=== PATIENT | female | born 1955 | race Caucasian/White ===

== ENCOUNTER 2022-10-17 08:03 | Outpatient (OUT) | payer OTHER, SELFPAY ==
[2022-10-17 08:33] LABS: Basophils Percent Auto 0.5 % (0.2-2.0); Eosinophils Absolute Auto 0.8 10^3/uL (0.0-0.7); Eosinophils Percent Auto 9.5 % (0.9-7.0); Hematocrit 39.9 % (36.0-48.0); Hemoglobin 12.9 g/dL (12.0-16.0); Immature Granulocytes Abs Auto 0.02 10^3/uL (0.00-0.03); Immature Granulocytes Pct Auto 0.3 % (0.0-0.5); Lymphocytes Absolute Auto 2.2 10^3/uL (1.2-3.8); Lymphocytes Percent Auto 27.3 % (20.5-60.0); Mean Corpuscular HGB Conc 32.3 g/dL (29.9-35.2); Mean Corpuscular Hemoglobin 27.5 pg (26.7-34.0); Mean Corpuscular Volume 85.1 fL (81.0-99.0); Mean Platelet Volume 10.2 fL (9.5-13.5); Monocytes Absolute Auto 0.4 10^3/uL (0.3-0.8); Monocytes Percent Auto 5.1 % (1.7-12.0); Neutrophils Absolute Auto 4.6 10^3/uL (1.4-6.5); Neutrophils Percent Auto 57.3 % (43.0-75.0); Platelet Count 245 10^3/uL (150-450); Red Blood Count 4.69 10^6/uL (4.20-5.40); Red Cell Distribution Width 13.9 % (11.0-15.0); White Blood Count 7.9 10^3/uL (4.0-11.0)
[2022-10-17 09:42] LABS: Alanine Aminotransferase 24 U/L (14-59); Albumin Level 3.8 g/dL (3.4-5.0); Alkaline Phosphatase 62 U/L (46-116); Anion Gap 13.4; Aspartate Amino Transferase 15 U/L (15-37); BUN Creatinine Ratio 14.4; Bilirubin Total 0.4 mg/dL (0.2-1.0); Calcium 9.6 mg/dL (8.5-10.1); Carbon Dioxide 27.3 mmol/L (21.0-32.0); Chloride 103 mmol/L (98-107); Chol HDL Ratio 5.4; Cholesterol 209 mg/dL (<=200); Estimated Average Glucose 157 mg/dL; Estimated GFR (African America 56 (>=60); Estimated GFR (Non-African Ame 46 (>=60); Free T3 2.61 pg/mL (2.18-3.98); Globulin 3.7 g/dL; Glucose 206 mg/dL (74-106); Glycohemoglobin A1C 7.1 % (4.5-6.2); HDL Cholesterol 39 mg/dL (40-60); Potassium 4.7 mmol/L (3.5-5.1); Sodium 139 mmol/L (136-145); Thyroid Stimulating Hormone 0.157 uIU/mL (0.358-3.740); Total Protein 7.5 g/dL (6.4-8.2); Triglycerides 251 mg/dL (<=150); VLDL CHOLESTEROL 50.2 mg/dL
== END 2022-10-17 08:04 | disposition home or self-care (01) ==
LOC: LAB 08:07
PROVIDERS: PCP Family Medicine; Visit Provider Family Medicine
DX: Z79.899 Other long term (current) drug therapy (principal); E11.9 Type 2 diabetes mellitus without complications; E78.5 Hyperlipidemia, unspecified; R53.83 Other fatigue; Z12.11 Encounter for screening for malignant neoplasm of colon
CPT/HCPCS: 36415; 80053; 80061; 83036; 84436; 84443; 84481; 85025

== ENCOUNTER 2023-02-27 14:11 | Outpatient (OUT) | payer OTHER, SELFPAY ==
--- NOTE | 2023-02-27 14:52 | XR_ITS ---
[address] [address] Patient Name: BONNIE DENT MRN: [id number] date: 1955 Sex: F Assigned Patient Location: [facility] Current Patient Location: Accession/Order Number: [id number] Exam Date: 02/27/2023 14:45 Report Date: 02/28/2023 09:26 At the request of: FERMIN LANGE Procedure: XR lumbar spine 2-3V EXAM: XR lumbar spine 2-3V HISTORY: Lumbar Radiculopathy M54.16 COMPARISON: None. TECHNIQUE: 3 views Findings/impression: Satisfactory alignment. Maintained vertebral body heights. Multilevel endplate degenerative changes, disc disease, facet arthropathy and anterior spurring of L2 L4 to S1. No acute fracture or significant subluxation. Unremarkable soft tissues. Electronically authenticated by: FANTA ORTIZ Date: 02/28/2023 09:26
== END 2023-02-27 14:12 | disposition home or self-care (01) ==
LOC: RAD 14:12
PROVIDERS: PCP Family Medicine; Visit Provider Family Medicine
DX: M54.16 Radiculopathy, lumbar region (principal); M51.36 Other intervertebral disc degeneration, lumbar region
CPT/HCPCS: 72100

== ENCOUNTER 2023-12-20 09:16 | Outpatient (OUT) | payer OTHER, SELFPAY ==
--- OUTSIDE RECORDS SUMMARY | 2023-12-20 09:28 | XMS_ITS | CCD ---
Author Organization [facility] Care Team Providers Care Under Baster Name Role Phone FERMIN LANGE Unavailable Unavailable HOY, FERMIN M Unavailable Unavailable HOY, DR CHRISTENSEN Admitting Unavailable HOY, DR CHRISTENSEN Attending Unavailable HOY, DR CHRISTENSEN Primary Care Unavailable HOY, DR CHRISTENSEN Consulting Unavailable HOY, DR CHRISTENSEN Admitting Unavailable HOY, DR CHRISTENSEN Attending Unavailable HOY, DR CHRISTENSEN Primary Care Unavailable HOY, DR CHRISTENSEN Admitting Unavailable HOY, DR CHRISTENSEN Attending Unavailable HOY, DR CHRISTENSEN Primary Care Unavailable HOY, DR CHRISTENSEN Consulting Unavailable HOY, DR CHRISTENSEN Admitting Unavailable HOY, DR CHRISTENSEN Attending Unavailable HOY, DR CHRISTENSEN Primary Care Unavailable HOY, DR CHRISTENSEN Consulting Unavailable HOY, DR CHRISTENSEN Admitting Unavailable HOY, DR CHRISTENSEN Attending Unavailable HOY, DR CHRISTENSEN Primary Care Unavailable HOY, DR CHRISTENSEN Consulting Unavailable Zieber, DR Lerner Consulting Unavailable Problems Active Problems Problem Classification Problem Date Documented Da te Episodic/Chronic Abdominal pain (4 sources) Unspecified abdominal pain; Translations: [UNSPECIFIED ABDOMINAL PAIN] Onset: 10-18-2021 Episodic Other aftercare (4 sources) 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; Translations: [OTH USP CURRENT DRUG THERAPY] Onset: 08-17-2021 Episodic Urinary tract infections (4 sources) Acute cystitis with hematuria; Translations: [ACUTE CYSTITIS WITH HEMATURIA] Onset: 10-12-2021 Episodic Past or Other Problems Problem Classification Problem Date Documented Da te Episodic/Chronic Deficiency and other anemia (2 sources) Anemia, unspecified; Translations: [Anemia, unspecified] Onset: 03-21-2017 Episodic Diabetes mellitus without complication (2 sources) Other abnormal glucose; Translations: [Other abnormal glucose] Onset: 03-21-2017 Episodic Medical examination/evaluation (2 sources) Encounter for general adult medical examination without abnormal findings; Translations: [Encounter for general adult medical examination without abnormal findings] Onset: 03-21-2017 Episodic Unclassified (2 sources) Encounter for screening for malignant neoplasm of rectum; Translations: [Encounter for screening for malignant neoplasm of rectum] Onset: 03-21-2017 Episodic Results Test Name Value Interpretation Reference Range Facility CT ABD/PELVIS WO CONon 10-18 CT ABD/PELVIS WO CON EXAMINATION: CT ABD/PELVIS WO CON HISTORY: Abdominal pain , left flank pain COMPARISON: No relevant comparison available. TECHNIQUE: Axial, Coronal, and Sagittal images were created without IV contrast. Dose reduction techniques were achieved by using automated exposure control and/or adjustment of mA and/or kV according to patient size and/or use of iterative reconstruction technique. FINDINGS: LUNG BASES: No suspicious pulmonary or pleural disease. LIVER: No enlargement, atrophy, suspicious density, or significant focal lesion. BILIARY: Cholecystectomy. PANCREAS: No lesion, fluid collection, or abnormal duct dilatation. SPLEEN: No enlargement or focal lesion. ADRENALS: No mass or enlargement. KIDNEYS: No mass, obstruction, or calcification. BOWEL/MESENTERY: No visible mass, obstruction, or bowel wall thickening. AORTA/VASCULAR: No aneurysm or dissection. RETROPERITONEUM: No mass or adenopathy. LYMPH NODES: No adenopathy. URINARY BLADDER: No visible focal wall thickening, lesion, or calculus. PELVIC ORGANS: History. ABDOMINAL WALL: No mass or hernia. BONES: Degenerative disc disease of lower lumbar spine. No bony lesion or fracture. OTHER: Negative. IMPRESSION: 1. No urinary tract calculi or obstructive uropathy. 2. Unremarkable bowel. 3. No specific findings to account for patient's symptoms. Electronically authenticated by: MARTÍN HENNING Date: 2021-10-18 16:51 Normal [facility] XR KUB 1 VIEWon 10-13-2021 XR KUB 1 VIEW EXAMINATION: XR KUB 1 VIEW HISTORY: Acute cystitis ; left flank and pelvic pain for one day COMPARISON: No relevant comparison available. FINDINGS: KIDNEY/URETER - RIGHT: No visible renal or ureteral calcifications. KIDNEY/URETER - LEFT: No visible renal or ureteral calcifications. PELVIS: No visible ureteral calcifications. Any visible calcifications favor phleboliths. BOWEL: No abnormal dilation or deviation. BONES: No acute abnormality. OTHER: Right upper quadrant surgical clips suggesting cholecystectomy. IMPRESSION: 1. No urinary tract calculi. 2. Normal bowel gas pattern. 3. No suspicious findings. Electronically authenticated by: MARTÍN HENNING Date: 2021-10-13 21:03 Normal [facility] PROF CHEM 8 (BAS METB)on Anion gap [Moles/Vol] 16.3 mmol/L Normal [facility] Comment on above: Performed By: #### B MP #### [facility] [address] [address] [address] Bianca Hernandez Calcium [Mass/Vol] 9.2 mg/dL Normal 8.5-10.1 [facility] Comment on above: Performed By: #### B MP #### [facility] [address] [address] [address] Bianca Hernandez Chloride [Moles/Vol] 102 mmol/L Normal 98-107 [facility] Comment on above: Performed By: #### B MP #### [facility] [address] [address] [address] Bianca Hernandez CO2 [Moles/Vol] 24.7 mmol/L Normal 21.0-32.0 [facility] Comment on above: Performed By: #### B MP #### [facility] [address] [address] [address] Bianca Hernandez Creatinine [Mass/Vol] 1.66 mg/dL Critically high 0.55-1.02 [facility] Comment on above: Performed By: #### B MP #### [facility] [address] [address] [address] Bianca Hernandez EGFR-AF KUWAITI 38 mL/min/1.73m2 Critically low >=60 [facility] Comment on above: Performed By: #### B MP #### [facility] [address] [address] [address] Bianca Hernandez EGFR-NON AF KUWAITI 31 mL/min/1.73m2 Critically low >=60 [facility] Comment on above: Performed By: #### B MP #### [facility] [address] [address] [address] Bianca Hernandez Glucose [Mass/Vol] 160 mg/dL Critically high 74-106 [facility] Comment on above: Performed By: #### B MP #### [facility] [address] [place] [address] Dr. Bianca Hernandez Potassium [Moles/Vol] 5.0 mmol/L Normal 3.5-5.1 [facility] Comment on above: Performed By: #### B MP #### [facility] [address] [place] [address] Dr. Bianca Hernandez Sodium [Moles/Vol] 138 mmol/L Normal 136-145 [facility] Comment on above: Performed By: #### B MP #### [facility] [address] [place] [address] Dr. Bianca Hernandez Urea nitrogen [Mass/Vol] 30.0 mg/dL Critically high 7.0-18.0 [facility] Comment on above: Performed By: #### B MP #### [facility] [address] [place] [address] Dr. Bianca Hernandez Urea nitrogen/Creatinine [Mass ratio] 18.1 mg/mg Normal [facility] Comment on above: Performed By: #### B MP #### [facility] [address] [place] [address] Dr. Bianca Hernandez CBC AUTO DIFFon 08-12-2021 BASO # 0.1 103/ul Normal 0.0-0.1 [facility] Comment on above: Performed By: #### C BC #### [facility] [address] [place] [address] Dr. Bianca Hernandez Basophils/100 WBC (Bld) 0.8 % Normal 0.2-2.0 [facility] Comment on above: Performed By: #### C BC #### [facility] [address] [place] [address] Dr. Bianca Hernandez EO # 1.8 103/ul Critically high 0.0-0.7 [facility] Comment on above: Performed By: #### C BC #### [facility] [address] [place] [address] Dr. Bianca Hernandez Eosinophils/100 WBC (Bld) 18.3 % Critically high 0.9-7.0 [facility] Comment on above: Performed By: #### C BC #### [facility] [address] [place] [address] Dr. Bianca Hernandez Erythrocyte distribution width (RBC) [Ratio] 13.9 % Normal 11.0-15.0 [facility] Comment on above: Performed By: #### C BC #### [facility] [address] [place] [address] Dr. Bianca Hernandez Hematocrit (Bld) [Volume fraction] 38.5 % Normal 36.0-48.0 [facility] Comment on above: Performed By: #### C BC #### [facility] [address] [place] [address] Dr. Bianca Hernandez Hemoglobin (Bld) [Mass/Vol] 12.2 g/dL Normal 12.0-16.0 [facility] Comment on above: Performed By: #### C BC #### [facility] [address] [place] [address] Dr. Bianca Hernandez IG # 0.03 10e3/ul Normal 0.00-0.03 [facility] Comment on above: Performed By: #### C BC #### [facility] [address] [place] [address] Dr. Bianca Hernandez IG % 0.3 % Normal 0.0-0.5 [facility] Comment on above: Performed By: #### C BC #### [facility] [address] [place] [address] Dr. Bianca Hernandez LYMPH # 2.1 103/ul Normal 1.2-3.8 [facility] Comment on above: Performed By: #### C BC #### [facility] [address] [place] [address] Dr. Bianca Hernandez Lymphocytes/100 WBC (Bld) 21.7 % Normal 20.5-60.0 [facility] Comment on above: Performed By: #### C BC #### [facility] [address] [place] [address] Dr. Bianca Hernandez MANUAL DIFF REQ NO Normal [facility] Comment on above: Performed By: #### C BC #### [facility] [address] [address] [address] Bianca Hernandez MCH (RBC) [Entitic mass] 27.4 pg Normal 26.7-34.0 [facility] Comment on above: Performed By: #### C BC #### [facility] [address] [place] [address] Dr. Bianca Hernandez MCHC (RBC) [Mass/Vol] 31.7 g/dL Normal 29.9-35.2 [facility] Comment on above: Performed By: #### C BC #### [facility] [address] [place] [address] Dr. Bianca Hernandez MCV (RBC) [Entitic vol] 86.5 fL Normal 81.0-99.0 [facility] Comment on above: Performed By: #### C BC #### [facility] [address] [place] [address] Dr. Bianca Hernandez MONO # 0.5 103/ul Normal 0.3-0.8 [facility] Comment on above: Performed By: #### C BC #### [facility] [address] [place] [address] Dr. Bianca Hernandez Monocytes/100 WBC (Bld) 4.8 % Normal 1.7-12.0 [facility] Comment on above: Performed By: #### C BC #### [facility] [address] [place] [address] Dr. Bianca Hernandez NEUT # 5.2 103/ul Normal 1.4-6.5 [facility] Comment on above: Performed By: #### C BC #### [facility] [address] [place] [address] Dr. Bianca Hernandez Neutrophils/100 WBC (Bld) 54.1 % Normal 43.0-75.0 [facility] Comment on above: Performed By: #### C BC #### [facility] [address] [place] [address] Dr. Bianca Hernandez Platelet mean volume (Bld) [Entitic vol] 10.1 fL Normal 9.5-13.5 [facility] Comment on above: Performed By: #### C BC #### [facility] [address] [address] [address] Bianca Hernandez PLT 290 103/ul Normal 150-450 [facility] Comment on above: Performed By: #### C BC #### [facility] [address] [address] [address] Bianca Hernandez RBC 4.45 106/ul Normal 4.20-5.40 [facility] Comment on above: Performed By: #### C BC #### [facility] [address] [address] [address] Bianca Hernandez WBC 9.7 103/ul Normal 4.0-11.0 [facility] Comment on above: Performed By: #### C BC #### [facility] [address] [place] [address] Dr. Bianca Hrenandez FREE T3on 08-12-2021 FREE T3 3.43 pg/mlL Normal 2.18-3.98 [facility] Comment on above: Performed By: #### T 4, TSH, CMP, FT3, LIPID #### [facility] [address] [place] [address] Dr. Bianca Hernandez GLYCOHEMOGLOBIN A1Con 2021 ADA RECOMMENDATION SEE BELOW Normal [facility] Comment on above: Result Comment: ADA RECOMMENDED LIMIT 4.0 - 6.0 ADA THERAPEUTIC TARGET < 7.0 ACTION SUGGESTED > 7.0 Performed By: #### A 1C #### [facility] [address] [place] [address] Dr. Bianca Hernandez Glucose [Mass/Vol] 134 mg/dL Normal [facility] Comment on above: Performed By: #### A 1C #### [facility] [address] [place] [address] Dr. Bianca Hernandez HbA1c (Bld) [Mass fraction] 6.3 % Critically high 4.5-6.2 [facility] Comment on above: Performed By: #### A 1C #### [facility] [address] [place] [address] Dr. Bianca Hernandez LIPID PROFILEon 08-12-2021 CHOL-HDL RATIO NORM SEE BELOW Normal [facility] Comment on above: Result Comment: 3.3 - 4.4 LOW RISK 4.4 - 7.1 AVERAGE RISK 7.1 - 11.0 MODERATE RISK >11.0 HIGH RISK Performed By: #### T 4, TSH, CMP, FT3, LIPID #### [facility] [address] [address] [address] iBanca Hernandez Cholesterol [Mass/Vol] 236 mg/dL Critically high <=200 [facility] Comment on above: Performed By: #### T 4, TSH, CMP, FT3, LIPID #### [facility] [address] [address] [address] Bianca Hernandez Cholesterol in HDL [Mass/Vol] 43 mg/dL Normal 40-60 [facility] Comment on above: Performed By: #### T 4, TSH, CMP, FT3, LIPID #### [facility] [address] [address] [address] Bianca Hernandez Cholesterol in LDL [Mass/Vol] 136.4 mg/dL Normal [facility] Comment on above: Performed By: #### T 4, TSH, CMP, FT3, LIPID #### [facility] [address] [address] [address] Bianca Hernandez Cholesterol.total/Cho lesterol in HDL [Mass ratio] 5.5 {ratio} Normal [facility] Comment on above: Performed By: #### T 4, TSH, CMP, FT3, LIPID #### [facility] [address] [address] [address] Bianca Hernandez HDL NORMAL > or = 60 mg/dl - LO W CARDIOVASCULAR RISK <40 mg/dl - HIGH CARDIOVASCULAR RISK Normal [facility] Comment on above: Performed By: #### T 4, TSH, CMP, FT3, LIPID #### [facility] [address] [place] [address] Dr. Bianca Hernandez LDL CALC NORMAL SEE BELOW Normal [facility] Comment on above: Result Comment: <100 mg/dl OPTIMAL 100 - 129 mg/dl NEAR OR ABOVE OPTIMAL 130 - 159 mg/dl BORDERLINE HIGH 160 - 189 mg/dl HIGH >190 mg/dl VERY HIGH Performed By: #### T 4, TSH, CMP, FT3, LIPID #### [facility] [address] [place] [address] Dr. Bianca Hernandez Triglyceride [Mass/Vol] 283 mg/dL Critically high <=150 [facility] Comment on above: Performed By: #### T 4, TSH, CMP, FT3, LIPID #### [facility] [address] [place] [address] Dr. Bianca Hernandez VLDL CALC 56.6 mg/dL Normal [facility] Comment on above: Performed By: #### T 4, TSH, CMP, FT3, LIPID #### [facility] [address] [place] [address] Dr. Bianca Hernandez PROF 14(COMP METB)on 022 Albumin [Mass/Vol] 3.7 g/dL Normal 3.4-5.0 [facility] Comment on above: Performed By: #### T 4, TSH, CMP, FT3, LIPID #### [facility] [address] [place] [address] Dr. Bianca Hernandez Albumin/Globulin [Mass ratio] 1.0 {ratio} Normal [facility] Comment on above: Performed By: #### T 4, TSH, CMP, FT3, LIPID #### [facility] [address] [place] [address] Dr. Bianca Hernandez ALP [Catalytic activity/Vol] 59 U/L Normal 46-116 [facility] Comment on above: Performed By: #### T 4, TSH, CMP, FT3, LIPID #### [facility] [address] [place] [address] Dr. Bianca Hernandez ALT [Catalytic activity/Vol] 20 U/L Normal 14-59 [facility] Comment on above: Performed By: #### T 4, TSH, CMP, FT3, LIPID #### [facility] [address] [place] [address] Dr. Bianca Hernandez Anion gap [Moles/Vol] 14.8 mmol/L Normal [facility] Comment on above: Performed By: #### T 4, TSH, CMP, FT3, LIPID #### [facility] [address] [place] [address] Dr. Bianca Hernandez AST [Catalytic activity/Vol] 13 U/L Critically low 15-37 [facility] Comment on above: Performed By: #### T 4, TSH, CMP, FT3, LIPID #### [facility] [address] [place] [address] Dr. Bianca Hernandez Bilirubin [Mass/Vol] 0.5 mg/dL Normal 0.2-1.0 [facility] Comment on above: Performed By: #### T 4, TSH, CMP, FT3, LIPID #### [facility] [address] [place] [address] Dr. Bianca Hernandez Calcium [Mass/Vol] 9.7 mg/dL Normal 8.5-10.1 [facility] Comment on above: Performed By: #### T 4, TSH, CMP, FT3, LIPID #### [facility] [address] [place] [address] Dr. Bianca Hernandez Chloride [Moles/Vol] 102 mmol/L Normal 98-107 [facility] Comment on above: Performed By: #### T 4, TSH, CMP, FT3, LIPID #### [facility] [address] [place] [address] Dr. Bianca Hernandez CO2 [Moles/Vol] 25.9 mmol/L Normal 21.0-32.[address] [facility] Comment on above: Performed By: #### T 4, TSH, CMP, FT3, LIPID #### [facility] [address] [place] [address] Dr. Bianca Hernandez Creatinine [Mass/Vol] 1.88 mg/dL Critically high 0.55-1.02 [facility] Comment on above: Performed By: #### T 4, TSH, CMP, FT3, LIPID #### [facility] [address] [place] [address] Dr. Bianca Hernandez EGFR-AF KUWAITI 33 mL/min/1.73m2 Critically low >=60 [facility] Comment on above: Performed By: #### T 4, TSH, CMP, FT3, LIPID #### [facility] [address] [place] [address] Dr. Bianca Hernandez EGFR-NON AF KUWAITI 27 mL/min/1.73m2 Critically low >=60 [facility] Comment on above: Performed By: #### T 4, TSH, CMP, FT3, LIPID #### [facility] [address] [place] [address] Dr. Bianca Hernandez Globulin (S) [Mass/Vol] 3.7 g/dL Normal [facility] Comment on above: Performed By: #### T 4, TSH, CMP, FT3, LIPID #### [facility] [address] [place] [address] Dr. Bianca Hernandez Glucose [Mass/Vol] 154 mg/dL Critically high 74-106 [facility] Comment on above: Performed By: #### T 4, TSH, CMP, FT3, LIPID #### [facility] [address] [place] [address] Dr. Bianca Hernandez Potassium [Moles/Vol] 5.7 mmol/L Critically high 3.5-5.1 [facility] Comment on above: Performed By: #### T 4, TSH, CMP, FT3, LIPID #### [facility] [address] [place] [address] Dr. Bianca Hernandez Protein [Mass/Vol] 7.4 g/dL Normal 6.4-8.2 [facility] Comment on above: Performed By: #### T 4, TSH, CMP, FT3, LIPID #### [facility] [address] [place] [address] Dr. Bianca Hernandez Sodium [Moles/Vol] 137 mmol/L Normal 136-145 [facility] Comment on above: Performed By: #### T 4, TSH, CMP, FT3, LIPID #### [facility] [address] [place] [address] Dr. Bianca Hernandez Urea nitrogen [Mass/Vol] 24.0 mg/dL Critically high 7.0-18.0 [facility] Comment on above: Performed By: #### T 4, TSH, CMP, FT3, LIPID #### [facility] [address] [address] [address] Bianca Hernandez Urea nitrogen/Creatinine [Mass ratio] 12.8 mg/mg Normal [facility] Comment on above: Performed By: #### T 4, TSH, CMP, FT3, LIPID #### [facility] [address] [address] [address] Bianca Hernandez T4on 08-12-2021 T4 [Mass/Vol] 14.70 ug/dL Critically high 4.80-13.90 [facility] Comment on above: Performed By: #### T 4, TSH, CMP, FT3, LIPID #### [facility] [address] [address] [address] Bianca Hernandez TSHon 08-12-2021 TSH 0.073 uIU/mL Critically low 0.358-3.740 [facility] Comment on above: Performed By: #### T 4, TSH, CMP, FT3, LIPID #### [facility] [address] [address] [address] Bianca Hernandez TSH RANGE SEE BELOW Normal [facility] Comment on above: Result Comment: <0.3 4 UIU/ml HYPERTHYROID 0.34-5.60 UIU/ml EUTHYROID >5.60 UIU/ml HYPOTHYROID Performed By: #### T 4, TSH, CMP, FT3, LIPID #### [facility] [address] [address] [address] Bianca Hernandez VITAMIN D 25 OHon 08-12-2021 VIT D 25-OH 62.1 ng/mL Normal [facility] Comment on above: Performed By: #### V ITAD ####[facility] [id number] [address] Bianca Hernandez VIT D RANGES SEE BELOW Normal [facility] Comment on above: Result Comment: <20 ng/mL Vit D deficient 20 - <30 ng/mL Vit D insufficient 30 - 100 ng/mL Vit D sufficient >100 ng/mL Potential Toxicity Performed By: #### V ITAD ####[facility] [id number] [address]Dr. Bianca Hernandez CBC with Diffon 03-21-2017 Abs. Basophil 0.00 k/uL Normal 0.0-0.2 [facility] Comment on above: Result Comment: Perf ormed at [address] [place] [address] Performed By: #### C DP, CP, LIPR, T4, TSH, FE, GLYHGB ####[address] , [place] [address] #### INSU ####[address] [phone] [place] [address] #### TU ####[address] [address] Abs.Neutrophil (Seg) 6.60 k/uL Normal 1.8-7.7 [facility] Comment on above: Performed By: #### C DP, CP, LIPR, T4, TSH, FE, GLYHGB ####[address] [place] [address] #### INSU ####[address] [phone] [place] [address] #### TU ####[address] [address] Basophils/100 WBC Auto (Bld) 1 % Normal 0-2 [facility] Comment on above: Performed By: #### C DP, CP, LIPR, T4, TSH, FE, GLYHGB ####[address] [place] [id number] #### INSU ####[address] [phone] [place] [address] #### TU ####[address] [address] Eosinophils 0.60 10*3/uL High 0.0-0.4 [facility] Comment on above: Performed By: #### C DP, CP, LIPR, T4, TSH, FE, GLYHGB ####[address] [place] [address] #### INSU ####[address] [phone] [place] [address] #### TU ####[address] [address] Eosinophils/100 leukocytes 6 % Normal 0-8 [facility] Comment on above: Performed By: #### C DP, CP, LIPR, T4, TSH, FE, GLYHGB ####[address] [place] [address] #### INSU ####[address] [phone] [place] [address] #### TU ####[address] [address] Erythrocyte distribution width Auto Ratio (RBC) 14.5 % Normal 12.1-15.2 [facility] Comment on above: Performed By: #### C DP, CP, LIPR, T4, TSH, FE, GLYHGB ####[address] [place] [address] #### INSU ####[address] [phone] [place] [address] #### TU ####[address] [address] Erythrocytes (RBC) 5.17 10*6/uL Normal 4.0-5.2 [facility] Comment on above: Performed By: #### C DP, CP, LIPR, T4, TSH, FE, GLYHGB ####[address] [place] [address] #### INSU ####[address] [phone] [place] [address] #### TU ####[address] [address] Hematocrit (HCT) 41.6 % Normal 36-[address] [facility] Comment on above: Performed By: #### C DP, CP, LIPR, T4, TSH, FE, GLYHGB ####[address] [place] [address] #### INSU ####[address] [phone] [place] [address] #### TU ####[address] [address] Hemoglobin mass conc (Bld) 13.3 g/dL Normal 12.0-16.0 [facility] Comment on above: Performed By: #### C DP, CP, LIPR, T4, TSH, FE, GLYHGB ####[address] [place] [address] #### INSU ####[address] [phone] [place] [address] #### TU ####[address] [address] Lymphocytes 2.20 10*3/uL Normal 1.0-4.8 [facility] Comment on above: Performed By: #### C DP, CP, LIPR, T4, TSH, FE, GLYHGB ####[address] [place] [address] #### INSU ####[address] [phone] [place] [address] #### TU ####[address] [address] Lymphocytes/100 leukocytes 23 % Low 24-44 [facility] Comment on above: Performed By: #### C DP, CP, LIPR, T4, TSH, FE, GLYHGB ####[address] [place] [address] #### INSU ####[address] [phone] [place] [address] #### TU ####[address] [address] MCH 25.7 pg Low 26-34 [facility] Comment on above: Performed By: #### C DP, CP, LIPR, T4, TSH, FE, GLYHGB ####[address] [place] [address] #### INSU ####[address] [phone] [place] [address] #### TU ####[address] [address] MCHC mass conc (RBC) 32.0 g/dL Normal 31-37 [facility] Comment on above: Performed By: #### C DP, CP, LIPR, T4, TSH, FE, GLYHGB ####[address] [place] [address] #### INSU ####[address] [phone] [place] [address] #### TU ####[address] [address] MCV 80.5 fL Normal 80-100 [facility] Comment on above: Performed By: #### C DP, CP, LIPR, T4, TSH, FE, GLYHGB ####[address] [place] [address] #### INSU ####[address] [phone] [place] [address] #### TU ####[address] [address] Monocytes 0.30 10*3/uL Normal 0.0-1.0 [facility] Comment on above: Performed By: #### C DP, CP, LIPR, T4, TSH, FE, GLYHGB ####[address] [place] [address] #### INSU ####[address] [phone] [place] [address] #### TU ####[address] [address] Monocytes/100 leukocytes 3 % Normal 0-12 [facility] Comment on above: Performed By: #### C DP, CP, LIPR, T4, TSH, FE, GLYHGB ####[address] [place] [address] #### INSU ####[address] [phone] [place] [address] #### TU ####[address] [address] Neutrophil (Seg) 67 % High 36-[address] [facility] Comment on above: Performed By: #### C DP, CP, LIPR, T4, TSH, FE, GLYHGB ####[address] [place] [address] #### INSU ####[address] [phone] [place] [address] #### TU ####[address] [address] Platelet mean volume (PMV) 9.4 fL Normal 6.0-12.0 [facility] Comment on above: Performed By: #### C DP, CP, LIPR, T4, TSH, FE, GLYHGB ####[address] [place] [address] #### INSU ####[address] [phone] [place] [address] #### TU ####[address] [address] Platelets 258 10*3/uL Normal 140-450 [facility] Comment on above: Performed By: #### C DP, CP, LIPR, T4, TSH, FE, GLYHGB ####[address] [place] [address] #### INSU ####[address] [phone] [place] [address] #### TU ####[address] [address] WBC (Leukocytes) 9.8 10*3/uL Normal 3.5-11.0 [facility] Comment on above: Performed By: #### C DP, CP, LIPR, T4, TSH, FE, GLYHGB ####[address] [place] [address] #### INSU ####[address] [phone] [place] [address] #### TU ####[address] [address] Auto Diff Performed NOT REPORTED Normal [facility] Comment on above: Performed By: #### C DP, CP, LIPR, T4, TSH, FE, GLYHGB ####[address] [place] [address] #### INSU ####[address] [phone] [place] [address] #### TU ####[address] [address] Erythrocyte morphology NOT REPORTED Normal [facility] Comment on above: Performed By: #### C DP, CP, LIPR, T4, TSH, FE, GLYHGB ####[address] [place] [address] #### INSU ####[address] [phone] [place] [address] #### TU ####[address] [address] Granulocytes/100 WBC (Bld) NOT REPORTED Normal 0.00-0.30 [facility] Comment on above: Performed By: #### C DP, CP, LIPR, T4, TSH, FE, GLYHGB ####[address] [place] [address] #### INSU ####[address] [phone] [place] [address] #### TU ####[address] [address] Immature granulocytes #/vol (Bld) NOT REPORTED Normal 0 [facility] Comment on above: Performed By: #### C DP, CP, LIPR, T4, TSH, FE, GLYHGB ####[address] [place] [address] #### INSU ####[address] [phone] [place] [address] #### TU ####[address] [address] Platelets NOT REPORTED Normal [facility] Comment on above: Performed By: #### C DP, CP, LIPR, T4, TSH, FE, GLYHGB ####[address] [place] [address] #### INSU ####[address] [phone] [place] [address] #### TU ####[address] [address] WBC Morphology NOT REPORTED Normal [facility] Comment on above: Performed By: #### C DP, CP, LIPR, T4, TSH, FE, GLYHGB ####[address] [place] [address] #### INSU ####[address] [phone] [place] [address] #### TU ####[address] [address] Comp Metabolic Profon 2016 (cont.) Normal [facility] Comment on above: Result Comment: Aver age GFR for 60-69 years old: 85 mL/min/1.73sq mChronic Kidney Disease: <60 mL/min/1.73sq mKidney failure: <15 mL/min/1.73sq meGFR calculated using average adult body mass. Additional eGFR calculator available at:http://www.MarketPage.com/multiple_crcl_2012.htm Performed By: #### C DP, CP, LIPR, T4, TSH, FE, GLYHGB ####[address] [place] [address] #### INSU ####[address] [phone] [place] [address] #### TU ####[address] [address] Alanine aminotransferase (ALT) 19 U/L Normal 5-33 [facility] Comment on above: Performed By: #### C DP, CP, LIPR, T4, TSH, FE, GLYHGB ####[address] [place] [address] #### INSU ####[address] [phone] [place] [address] #### TU ####[address] [address] Albumin 4.2 g/dL Normal 3.5-5.2 [facility] Comment on above: Performed By: #### C DP, CP, LIPR, T4, TSH, FE, GLYHGB ####[address] [place] [address] #### INSU ####[address] [phone] [place] [address] #### TU ####[address] [address] Albumin/Globulin Ratio 1.4 {ratio} Normal 1.0-2.5 [facility] Comment on above: Performed By: #### C DP, CP, LIPR, T4, TSH, FE, GLYHGB ####[address] [place] [address] #### INSU ####[address] [phone] [place] [address] #### TU ####[address] [address] Alkaline Phos 50 U/L Normal 35-104 [facility] Comment on above: Performed By: #### C DP, CP, LIPR, T4, TSH, FE, GLYHGB ####[address] [place] [address] #### INSU ####[address] [phone] [place] [address] #### TU ####[address] [address] Anion gap 13 mmol/L Normal 9-17 [facility] Comment on above: Performed By: #### C DP, CP, LIPR, T4, TSH, FE, GLYHGB ####[address] [place] [address] #### INSU ####[address] [phone] [place] [address] #### TU ####[address] [address] Aspartate aminotransferase (AST) 21 U/L Normal <32 [facility] Comment on above: Performed By: #### C DP, CP, LIPR, T4, TSH, FE, GLYHGB ####[address] [place] [address] #### INSU ####[address] [place] [phone] [place] [address] #### TU ####[address] [address] Bilirubin Ql (U) 0.51 mg/dL Normal 0.3-1.[address] [facility] Comment on above: Performed By: #### C DP, CP, LIPR, T4, TSH, FE, GLYHGB ####[address] [place] [address] #### INSU ####[address] [phone] [place] [address] #### TU ####[address] [address] BUN/CRE Ratio 22 High 9-20 [facility] Comment on above: Performed By: #### C DP, CP, LIPR, T4, TSH, FE, GLYHGB ####[address] [place] [address] #### INSU ####[address] [phone] [place] [address] #### TU ####[address] [address] Calcium 9.8 mg/dL Normal 8.6-10.4 [facility] Comment on above: Performed By: #### C DP, CP, LIPR, T4, TSH, FE, GLYHGB ####[address] [place] [address] #### INSU ####[address] [phone] [place] [address] #### TU ####[address] [address] Chloride 100 mmol/L Normal 98-107 [facility] Comment on above: Performed By: #### C DP, CP, LIPR, T4, TSH, FE, GLYHGB ####[address] [place] [address] #### INSU ####[address] [phone] [place] [address] #### TU ####[address] [address] CO2 27 mmol/L Normal 20-31 [facility] Comment on above: Performed By: #### C DP, CP, LIPR, T4, TSH, FE, GLYHGB ####[address] [place] [address] #### INSU ####[address] [phone] [place] [address] #### TU ####[address] [address] Creatinine 0.72 mg/dL Normal 0.50-0.90 [facility] Comment on above: Performed By: #### C DP, CP, LIPR, T4, TSH, FE, GLYHGB ####[address] [place] [address] #### INSU ####[address] [phone] [place] [address] #### TU ####[address] [address] eGFR (non-black) mL/min/{1.73_m2} Normal >60 Me [facility] Comment on above: Performed By: #### C DP, CP, LIPR, T4, TSH, FE, GLYHGB ####[address] [place] [address] #### INSU ####[address] [phone] [place] [address] #### TU ####[address] [address] Glucose mass conc 148 mg/dL High 70-99 [facility] Comment on above: Performed By: #### C DP, CP, LIPR, T4, TSH, FE, GLYHGB ####[address] [place] [address] #### INSU ####[address] [phone] [place] [address] #### TU ####[address] [address] Potassium molar conc 5.0 mmol/L Normal 3.7-5.3 [facility] Comment on above: Performed By: #### C DP, CP, LIPR, T4, TSH, FE, GLYHGB ####[address] [place] [address] #### INSU ####[address] [phone] [place] [address] #### TU ####[address] [address] Protein 7.3 g/dL Normal 6.4-8.3 [facility] Comment on above: Performed By: #### C DP, CP, LIPR, T4, TSH, FE, GLYHGB ####[address] [place] [address] #### INSU ####[address] [phone] [place] [address] #### TU ####[address] [address] Sodium 140 mmol/L Normal 135-144 [facility] Comment on above: Performed By: #### C DP, CP, LIPR, T4, TSH, FE, GLYHGB ####[address] [place] [address] #### INSU ####[address] [phone] [place] [address] #### TU ####[address] [address] Staging: Normal [facility] Comment on above: Result Comment: Stag e 1: Some kidney damage normal GFRStage 2: Mild kidney damage GFR 60-89Stage 3: Moderate kidney damage GFR 30-59Stage 4: Severe kidney damage GFR 15-29Stage 5: Severe kidney damage GFR <15ESRD - chronic treatment by dialysis or transplantPerformed at [address] [place] [address] Performed By: #### C DP, CP, LIPR, T4, TSH, FE, GLYHGB ####[address] [place] [address] #### INSU ####[address] [phone] [place] [address] #### TU ####[address] [address] Urea nitrogen 16 mg/dL Normal 8- [facility] Comment on above: Performed By: #### C DP, CP, LIPR, T4, TSH, FE, GLYHGB ####[address] [place] [address] #### INSU ####[address] [phone] [place] [address] #### TU ####[address] [address] Hemoglobin A1Con 03-21-2017 Glucose mass conc 134 mg/dL Normal [facility] Comment on above: Result Comment: The ADA and AACC recommend providing the estimated average glucose result to permit better patient understanding of their HBA1c result.Performed at [address] [place] [address] Performed By: #### C DP, CP, LIPR, T4, TSH, FE, GLYHGB ####[address] [place] [address] #### INSU ####[address] [phone] [place] [address] #### TU ####[address] [address] Hemoglobin A1c/Hemoglobin.total mass fraction (Bld) 6.3 % High 4.8-5.9 [facility] Comment on above: Performed By: #### C DP, CP, LIPR, T4, TSH, FE, GLYHGB ####[address] [place] [address] #### INSU ####[address] [phone] [place] [address] #### TU ####[address] [address] Insulinon 03-21-2017 Insulin 22.0 mU/L Normal [facility] Comment on above: Performed By: #### C DP, CP, LIPR, T4, TSH, FE, GLYHGB ####[address] [place] [address] #### INSU ####[address] [phone] [place] [address] #### TU ####[address] [address] Reference Range [facility] Comment on above: Result Comment: Fast in.6-24.930 min: 20-05038 min: 29-8890 min: 26-37354 min: 22-79Performed at [address] [address] Performed By: #### C DP, CP, LIPR, T4, TSH, FE, GLYHGB ####[address] [place] [address] #### INSU ####[address] [phone] [place] [address] #### TU ####[address] [address] Collection Info. [address] [facility] Comment on above: Result Comment: Perf ormed at [address] [place] [address] Performed By: #### C DP, CP, LIPR, T4, TSH, FE, GLYHGB ####[address] [place] [address] #### INSU ####[address] [phone] [place] [address] #### TU ####[address] [address] Ironon 03-21-2017 Iron 54 ug/dL Normal 37-145 [facility] Comment on above: Result Comment: Perf ormed at [address] [place] [address] Performed By: #### C DP, CP, LIPR, T4, TSH, FE, GLYHGB ####[address] [place] [address] #### INSU ####[address] [phone] [place] [address] #### TU ####[address] [address] Lipid Profileon 03-21-2017 Cholesterol 207 mg/dL High <200 [facility] Comment on above: Result Comment: Chol esterol Guidelines: <200 Desirable 200-240 Borderline >240 Undesirable Performed By: #### C DP, CP, LIPR, T4, TSH, FE, GLYHGB ####[address] [place] [address] #### INSU ####[address] [phone] [place] [address] #### TU ####[address] [address] Cholesterol to HDL Ratio 4.5 {ratio} Normal <5 [facility] Comment on above: Performed By: #### C DP, CP, LIPR, T4, TSH, FE, GLYHGB ####[address] [place] [address] #### INSU ####[address] [phone] [place] [address] #### TU ####[address] [address] HDL Cholesterol 46 mg/dL Normal >40 [facility] Comment on above: Result Comment: HDL Guidelines: <40 Undesirable 40-59 Borderline >59 Desirable Performed By: #### C DP, CP, LIPR, T4, TSH, FE, GLYHGB ####[address] [place] [address] #### INSU ####[address] [phone] [place] [address] #### TU ####[address] [address] LDL Cholesterol 132 mg/dL High 0-130 [facility] Comment on above: Result Comment: LDL Guidelines: <100 Desirable 100-129 Near to/above Desirable 130-159 Borderline >159 UndesirableDirect (measured) LDL and calculated LDL are not interchangeable tests. Performed By: #### C DP, CP, LIPR, T4, TSH, FE, GLYHGB ####[address] [place] [address] #### INSU ####[address] [place] [phone] [place] [address] #### TU ####[address] [address] Triglyceride 146 mg/dL Normal <150 [facility] Comment on above: Result Comment: Trig lyceride Guidelines: <150 Desirable 150- 199 Borderline 200-499 High >499 Very high Based on AHA Guidelines for fasting triglyceride, December 2011.Performed at [address] [place] [address] Performed By: #### C DP, CP, LIPR, T4, TSH, FE, GLYHGB ####[address] [place] [address] #### INSU ####[address] [phone] [place] [address] #### TU ####[address] [address] Cholesterol in VLDL mass conc NOT REPORTED Normal 04-25 [facility] Comment on above: Performed By: #### C DP, CP, LIPR, T4, TSH, FE, GLYHGB ####[address] [place] [address] #### INSU ####[address] [phone] [place] [address] #### TU ####[address] [address] Thyroid Stim. Horm.on 2016 Thyroid stimulating hormone (TSH) 0.04 m[IU]/L Low 0.30-5.00 [facility] Comment on above: Result Comment: Perf ormed at [address] [place] [address] Performed By: #### C DP, CP, LIPR, T4, TSH, FE, GLYHGB ####[address] [place] [address] #### INSU ####[address] [phone] [place] [address] #### TU ####[address] [address] Thyroxine T4on 03-21-2017 Thyroxine (T4) 11.9 ug/dL Normal 4.5-12.0 [facility] Comment on above: Result Comment: Perf ormed at [address] [place] [address] Performed By: #### C DP, CP, LIPR, T4, TSH, FE, GLYHGB ####[address] [place] [address] #### INSU ####[address] [phone] [place] [address] #### TU ####[address] [address] Thyroxine Uptakeon 7 Thyroxine (T4) 35.28 % Normal 28-41 [facility] Comment on above: Result Comment: Perf ormed at [address] [address] Performed By: #### C DP, CP, LIPR, T4, TSH, FE, GLYHGB ####[address] [place] [address] #### INSU ####[address] [place] [phone] [place] [address] #### TU ####[address] [place] [address] Encounters Encounter Date Encounter Type Care Provider Facility Start: 10-18-2021 End: 10-19-[address] FERMIN LANGE Facility:[facility] Start: 10-12-2021 End: 10-13-[address] FERMIN LANGE Facility:[facility] Start: 08-18-2021 Encounter for genera l adult medical examination without abnormal findings DR FERMIN LANGE [facility] Start: 08-17-2021 End: 08-18-[address] FERMIN LANGE Facility:[facility] Start: 08-12-2021 End: 08-13-[address] FERMIN LANGE Facility:[facility] Start: 08-12-2021 End: 08-13-2021 Encounter for general adult medical examination without abnormal findings DR FERMIN LANGE Facility:[facility] Start: 11-29-[address] FERMIN LANGE Facility :[facility] Start: 03-21-2017 End: 03-22-2017 Ambulatory FERMIN Guillen [facility] l Procedures Date Procedure Procedure Detail Performing Clinician Start: 03-21-2017 CBC WITH AUTO DIFFERENTIAL FERMIN LANGE Start: 03-21-2017 COMPREHENSIVE METABOLIC PANEL FERMIN HOY Start: 03-21-2017 HEMOGLOBIN A1C FERMIN MIGUELY Start: 03-21-2017 INSULIN, TOTAL FERMIN HOY Start: 03-21-2017 IRON FERMIN HO Y Start: 03-21-2017 Lipid panel FERMIN HO Y Start: 03-21-2017 T3, UPTAKE FERMIN HO Y Start: 03-21-2017 T4 FERMIN HO Y Start: 03-21-2017 TSH WITHOUT REFLEX DAVID LAS HOY Payers Date Payer Category Payer Private Health Insurance [id number] Self-pay [id number] 1957 Unknown [id number] 1955 Unknown [id number] 2.16.84 [id number] 1955 Unknown [id number] 2.16.84 [id number] 1955 Unknown [id number] 2.16.84 [id number] 1955 Unknown [id number] 2.16.84 [id number] 1955 Unknown [id number] 2.16.84 [id number] Summary Purpose Family History No Family History Records FoundNo Family History Records Found Advance Directives No Advanced Directives Records FoundNo Advanced Directives Records Found Additional Source Comments INFORMATION SOURCE (unrecogn ized section and content) DATE CREATED AUTHOR 09/19/2017 [facility] DATE CREATED AUTHOR AUTHOR'S YOLANDA CORTEZ 10/19/2021 [facility] FOR RECORDS PERTAINING TO PATIENTS WHO ARE OR HAVE BEEN ENROLLED IN A CHEMICAL DEPENDENCY/SUBSTANCEABUSE PROGRAM, SOME INFORMATION MAY BE OMITTED. This clinical summary was aggregated from multiple sources. Caution should be exercised in using it in the provision of clinical care. This summary normalizes information from multiple sources, and as a consequence, information in this document may materially change the coding, format and clinical context of patient data. In addition, data may be omitted in some cases. CLINICAL DECISIONS SHOULD BE BASED ON THE PRIMARY CLINICAL RECORDS. [facility] [facility]. provides no warranty or guarantee of the accuracy or completeness of information in this document.
[2023-12-20 09:46] LABS: Basophils Absolute Auto 0.1 10^3/uL (0.0-0.1); Basophils Percent Auto 0.7 % (0.2-2.0); Eosinophils Absolute Auto 0.9 10^3/uL (0.0-0.7); Eosinophils Percent Auto 10.5 % (0.9-7.0); Hematocrit 40.9 % (36.0-48.0); Hemoglobin 13.1 g/dL (12.0-16.0); Immature Granulocytes Abs Auto 0.02 10^3/uL (0.00-0.03); Immature Granulocytes Pct Auto 0.2 % (0.0-0.5); Lymphocytes Absolute Auto 2.2 10^3/uL (1.2-3.8); Lymphocytes Percent Auto 24.7 % (20.5-60.0); Mean Corpuscular Volume 84.3 fL (81.0-99.0); Mean Platelet Volume 10.3 fL (9.5-13.5); Monocytes Absolute Auto 0.5 10^3/uL (0.3-0.8); Monocytes Percent Auto 5.7 % (1.7-12.0); Neutrophils Absolute Auto 5.1 10^3/uL (1.4-6.5); Neutrophils Percent Auto 58.2 % (43.0-75.0); Platelet Count 232 10^3/uL (150-450); Red Blood Count 4.85 10^6/uL (4.20-5.40); Red Cell Distribution Width 14.3 % (11.0-15.0); White Blood Count 8.7 10^3/uL (4.0-11.0)
[2023-12-20 10:23] LABS: Estimated Average Glucose 180 mg/dL; Glycohemoglobin A1C 7.9 % (4.5-6.2)
[2023-12-20 10:56] LABS: Free T4 1.63 ng/dL (0.76-1.46)
[2023-12-20 11:01] LABS: Alanine Aminotransferase 20 U/L (14-59); Albumin Globulin Ratio 1.1; Albumin Level 3.7 g/dL (3.4-5.0); Alkaline Phosphatase 57 U/L (46-116); Anion Gap 13.1; Aspartate Amino Transferase 14 U/L (15-37); BUN Creatinine Ratio 14.5; Bilirubin Total 0.9 mg/dL (0.2-1.0); Calcium 9.8 mg/dL (8.5-10.1); Carbon Dioxide 26.5 mmol/L (21.0-32.0); Chloride 100 mmol/L (98-107); Chol HDL Ratio 2.9; Cholesterol 135 mg/dL (<=200); Estimated GFR (African America 46 (>=60); Estimated GFR (Non-African Ame 38 (>=60); Free T3 2.47 pg/mL (2.18-3.98); Globulin 3.4 g/dL; Glucose 200 mg/dL (74-106); HDL Cholesterol 46 mg/dL (40-60); Potassium 4.6 mmol/L (3.5-5.1); Sodium 135 mmol/L (136-145); Thyroid Stimulating Hormone 0.081 uIU/mL (0.358-3.740); Total Protein 7.1 g/dL (6.4-8.2); Triglycerides 200 mg/dL (<=150)
== END 2023-12-20 09:17 | disposition home or self-care (01) ==
LOC: LAB 09:19
PROVIDERS: PCP Family Medicine; Visit Provider Family Medicine
DX: Z00.00 Encounter for general adult medical examination without abnormal findings (principal)
CPT/HCPCS: 36415; 80053; 80061; 83036; 84439; 84443; 84481; 85025

== ENCOUNTER 2024-12-06 07:37 | Outpatient (OUT) | payer BC, SELFPAY ==
--- OUTSIDE RECORDS SUMMARY | 2024-12-06 07:40 | XMS_ITS | CCD ---
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 Bianca Hernandez Calcium [Mass/Vol] 9.2 mg/dL Normal 8.5-10.1 [facility] Comment on above: Performed By: #### B MP #### [facility] [address] [address] [address] Bianca Hernandez Chloride [Moles/Vol] 102 mmol/L Normal 98-107 [facility] Comment on above: Performed By: #### B MP #### [facility] [address] [address] [address] Bianca Hernandez CO2 [Moles/Vol] 24.7 mmol/L Normal 21.0-32.0 [facility] Comment on above: Performed By: #### B MP #### [facility] [address] [address] [address] Bianca Hernandez Creatinine [Mass/Vol] 1.66 mg/dL Critically high 0.55-1.02 [facility] Comment on above: Performed By: #### B MP #### [facility] [address] [address] [address] Bianca Hernandez EGFR-AF SWAZI 38 mL/min/1.73m2 Critically low >=60 [facility] Comment on above: Performed By: #### B MP #### [facility] [address] [address] [address] Bianca Hernandez EGFR-NON AF SWAZI 31 mL/min/1.73m2 Critically low >=60 [facility] Comment on above: Performed By: #### B MP #### [facility] [address] [address] [address] Bianca Hernandez Glucose [Mass/Vol] 160 mg/dL Critically high 74-106 T [facility] Comment on above: Performed By: #### B MP #### [facility] [address] [place] [address] Dr. Bianca Hernandez Potassium [Moles/Vol] 5.0 mmol/L Normal 3.5-5.1 [facility] Comment on above: Performed By: #### B MP #### [facility] [address] [place] [address] Dr. Bianca Hernandez Sodium [Moles/Vol] 138 mmol/L Normal 136-145 [facility] Comment on above: Performed By: #### B MP #### [facility] [address] [place] [address] Dr. Bianca Hernandez Urea nitrogen [Mass/Vol] 30.0 mg/dL Critically high 7.0-18.0 [facility] Comment on above: Performed By: #### B MP #### [facility] [address] [place] [address] Dr. Bianca Hernandez Urea nitrogen/Creatinine [Mass ratio] 18.1 mg/mg Normal [facility] Comment on above: Performed By: #### B MP #### [facility] [address] [place] [address] Dr. Bianca Hernandez CBC AUTO DIFFon 08-12-2021 BASO # 0.1 103/ul Normal 0.0-0.1 [facility] Comment on above: Performed By: #### C BC #### [facility] [address] [place] [address] Dr. Bianca Hernandez Basophils/100 WBC (Bld) 0.8 % Normal 0.2-2.0 [facility] Comment on above: Performed By: #### C BC #### [facility] [address] [place] [address] Dr. Bianca Hernandez EO # 1.8 103/ul Critically high 0.0-0.7 [facility] Comment on above: Performed By: #### C BC #### [facility] [address] [place] [address] Dr. Bianca Hernandez Eosinophils/100 WBC (Bld) 18.3 % Critically high 0.9-7.0 [facility] Comment on above: Performed By: #### C BC #### [facility] [address] [place] [address] Dr. Bianca Hernandez Erythrocyte distribution width (RBC) [Ratio] 13.9 % Normal 11.0-15.0 [facility] Comment on above: Performed By: #### C BC #### [facility] [address] [place] [address] Dr. Bianca Hernandez Hematocrit (Bld) [Volume fraction] 38.5 % Normal 36.0-48.0 [facility] Comment on above: Performed By: #### C BC #### [facility] [address] [place] [address] Dr. Bianca Hernandez Hemoglobin (Bld) [Mass/Vol] 12.2 g/dL Normal 12.0-16.0 [facility] Comment on above: Performed By: #### C BC #### [facility] [address] [place] [address] Dr. Bianca Hernandez IG # 0.03 10e3/ul Normal 0.00-0.03 [facility] Comment on above: Performed By: #### C BC #### [facility] [address] [place] [address] Dr. Bianca Hernandez IG % 0.3 % Normal 0.0-0.5 [facility] Comment on above: Performed By: #### C BC #### [facility] [address] [place] [address] Dr. Bianca Hernandez LYMPH # 2.1 103/ul Normal 1.2-3.8 [facility] Comment on above: Performed By: #### C BC #### [facility] [address] [place] [address] Dr. Bianca Hernandez Lymphocytes/100 WBC (Bld) 21.7 % Normal 20.5-60.0 [facility] Comment on above: Performed By: #### C BC #### [facility] [address] [place] [address] Dr. Bianca Hernandez MANUAL DIFF REQ NO Normal [facility] Comment on above: Performed By: #### C BC #### [facility] [address] [address] [address] Bianca Hernandez MCH (RBC) [Entitic mass] 27.4 pg Normal 26.7-34.0 [facility] Comment on above: Performed By: #### C BC #### [facility] [address] [place] [address] Dr. Bianca Hernandez MCHC (RBC) [Mass/Vol] 31.7 g/dL Normal 29.9-35.2 [facility] Comment on above: Performed By: #### C BC #### [facility] [address] [place] [address] Dr. Bianca Hernandez MCV (RBC) [Entitic vol] 86.5 fL Normal 81.0-99.0 [facility] Comment on above: Performed By: #### C BC #### [facility] [address] [place] [address] Dr. Bianca Hernandez MONO # 0.5 103/ul Normal 0.3-0.8 [facility] Comment on above: Performed By: #### C BC #### [facility] [address] [place] [address] Dr. Bianca Hernandez Monocytes/100 WBC (Bld) 4.8 % Normal 1.7-12.0 [facility] Comment on above: Performed By: #### C BC #### [facility] [address] [place] [address] Dr. Bianca Hernandez NEUT # 5.2 103/ul Normal 1.4-6.5 [facility] Comment on above: Performed By: #### C BC #### [facility] [address] [place] [address] Dr. Bianca Hernandez Neutrophils/100 WBC (Bld) 54.1 % Normal 43.0-75.0 [facility] Comment on above: Performed By: #### C BC #### [facility] [address] [place] [address] Dr. Bianca Hernandez Platelet mean volume (Bld) [Entitic vol] 10.1 fL Normal 9.5-13.5 [facility] Comment on above: Performed By: #### C BC #### [facility] [address] [address] [address] Bianca Hernandez PLT 290 103/ul Normal 150-450 [facility] Comment on above: Performed By: #### C BC #### [facility] [address] [address] [address] Bianca Hernandez RBC 4.45 106/ul Normal 4.20-5.40 [facility] Comment on above: Performed By: #### C BC #### [facility] [address] [address] [address] Bianca Hernandez WBC 9.7 103/ul Normal 4.0-11.0 [facility] Comment on above: Performed By: #### C BC #### [facility] [address] [place] [address] Dr. Bianca Hernandez FREE T3on 08-12-2021 FREE T3 3.43 pg/mlL Normal 2.18-3.98 [facility] Comment on above: Performed By: #### T 4, TSH, CMP, FT3, LIPID #### [facility] [address] [place] [address] Dr. Bianca Hernandez GLYCOHEMOGLOBIN A1Con 2021 ADA RECOMMENDATION SEE BELOW Normal [facility] Comment on above: Result Comment: ADA RECOMMENDED LIMIT 4.0 - 6.0 ADA THERAPEUTIC TARGET < 7.0 ACTION SUGGESTED > 7.0 Performed By: #### A 1C #### [facility] [address] [place] [address] Dr. Bianca Hernandez Glucose [Mass/Vol] 134 mg/dL Normal [facility] Comment on above: Performed By: #### A 1C #### [facility] [address] [place] [address] Dr. Bianca Hernandez HbA1c (Bld) [Mass fraction] 6.3 % Critically high 4.5-6.2 [facility] Comment on above: Performed By: #### A 1C #### [facility] [address] [place] [address] Dr. Bianca Hernandez LIPID PROFILEon 08-12-2021 CHOL-HDL RATIO NORM SEE BELOW Normal [facility] Comment on above: Result Comment: 3.3 - 4.4 LOW RISK 4.4 - 7.1 AVERAGE RISK 7.1 - 11.0 MODERATE RISK >11.0 HIGH RISK Performed By: #### T 4, TSH, CMP, FT3, LIPID #### [facility] [address] [address] [address] Bianca Hernandez Cholesterol [Mass/Vol] 236 mg/dL Critically high <=200 [facility] Comment on above: Performed By: #### T 4, TSH, CMP, FT3, LIPID #### [facility] [address] [address] [address] Bianca Hernandez Cholesterol in HDL [Mass/Vol] 43 mg/dL Normal 40-60 [facility] Comment on above: Performed By: #### T 4, TSH, CMP, FT3, LIPID #### [facility] [address] [address] [address] Bianca Hernandez Cholesterol in LDL [Mass/Vol] 136.4 mg/dL Normal [facility] Comment on above: Performed By: #### T 4, TSH, CMP, FT3, LIPID #### [facility] [address] [address] [address] Bianca Hernandez Cholesterol.total/Cho lesterol in HDL [Mass ratio] 5.5 {ratio} Normal [facility] Comment on above: Performed By: #### T 4, TSH, CMP, FT3, LIPID #### [facility] [address] [address] [address] Bianca Hernandez HDL NORMAL > or = 60 mg/dl - LO W CARDIOVASCULAR RISK <40 mg/dl - HIGH CARDIOVASCULAR RISK Normal [facility] Comment on above: Performed By: #### T 4, TSH, CMP, FT3, LIPID #### [facility] [address] [place] [address] Dr. Bianca Hernandez LDL CALC NORMAL SEE BELOW Normal [facility] Comment on above: Result Comment: <100 mg/dl OPTIMAL 100 - 129 mg/dl NEAR OR ABOVE OPTIMAL 130 - 159 mg/dl BORDERLINE HIGH 160 - 189 mg/dl HIGH >190 mg/dl VERY HIGH Performed By: #### T 4, TSH, CMP, FT3, LIPID #### [facility] [address] [place] [address] Dr. Bianca Hernandez Triglyceride [Mass/Vol] 283 mg/dL Critically high <=150 [facility] Comment on above: Performed By: #### T 4, TSH, CMP, FT3, LIPID #### [facility] [address] [place] [address] Dr. Bianca Hernandez VLDL CALC 56.6 mg/dL Normal [facility] Comment on above: Performed By: #### T 4, TSH, CMP, FT3, LIPID #### [facility] [address] [place] [address] Dr. Bianca Hernandez PROF 14(COMP METB)on 022 Albumin [Mass/Vol] 3.7 g/dL Normal 3.4-5.0 [facility] Comment on above: Performed By: #### T 4, TSH, CMP, FT3, LIPID #### [facility] [address] [place] [address] Dr. Bianca Hernandez Albumin/Globulin [Mass ratio] 1.0 {ratio} Normal [facility] Comment on above: Performed By: #### T 4, TSH, CMP, FT3, LIPID #### [facility] [address] [place] [address] Dr. Bianca Hernandez ALP [Catalytic activity/Vol] 59 U/L Normal 46-116 [facility] Comment on above: Performed By: #### T 4, TSH, CMP, FT3, LIPID #### [facility] [address] [place] [address] Dr. Bianca Hernandez ALT [Catalytic activity/Vol] 20 U/L Normal 14-59 [facility] Comment on above: Performed By: #### T 4, TSH, CMP, FT3, LIPID #### [facility] [address] [place] [address] Dr. Bianca Hernandez Anion gap [Moles/Vol] 14.8 mmol/L Normal [facility] Comment on above: Performed By: #### T 4, TSH, CMP, FT3, LIPID #### [facility] [address] [place] [address] Dr. Bianca Hernandez AST [Catalytic activity/Vol] 13 U/L Critically low 15-37 [facility] Comment on above: Performed By: #### T 4, TSH, CMP, FT3, LIPID #### [facility] [address] [place] [address] Dr. Bianca Hernandez Bilirubin [Mass/Vol] 0.5 mg/dL Normal 0.2-1.0 [facility] Comment on above: Performed By: #### T 4, TSH, CMP, FT3, LIPID #### [facility] [address] [place] [address] Dr. Bianca Hernandez Calcium [Mass/Vol] 9.7 mg/dL Normal 8.5-10.1 [facility] Comment on above: Performed By: #### T 4, TSH, CMP, FT3, LIPID #### [facility] [address] [place] [address] Dr. Bianca Hernandez Chloride [Moles/Vol] 102 mmol/L Normal 98-107 [facility] Comment on above: Performed By: #### T 4, TSH, CMP, FT3, LIPID #### [facility] [address] [place] [address] Dr. Bianca Hernandez CO2 [Moles/Vol] 25.9 mmol/L Normal 21.0-32.0 [facility] Comment on above: Performed By: #### T 4, TSH, CMP, FT3, LIPID #### [facility] [address] [place] [address] Dr. Bianca Hernandez Creatinine [Mass/Vol] 1.88 mg/dL Critically high 0.55-1.02 [facility] Comment on above: Performed By: #### T 4, TSH, CMP, FT3, LIPID #### [facility] [address] [place] [address] Dr. Bianca Hernandez EGFR-AF SWAZI 33 mL/min/1.73m2 Critically low >=60 [facility] Comment on above: Performed By: #### T 4, TSH, CMP, FT3, LIPID #### [facility] [address] [place] [address] Dr. Bianca Hernandez EGFR-NON AF SWAZI 27 mL/min/1.73m2 Critically low >=60 [facility] Comment on above: Performed By: #### T 4, TSH, CMP, FT3, LIPID #### [facility] [address] [place] [address] Dr. Bianca Hernandez Globulin (S) [Mass/Vol] 3.7 g/dL Normal [facility] Comment on above: Performed By: #### T 4, TSH, CMP, FT3, LIPID #### [facility] [address] [place] [address] Dr. Bianca Hernandez Glucose [Mass/Vol] 154 mg/dL Critically high 74-106 [facility] Comment on above: Performed By: #### T 4, TSH, CMP, FT3, LIPID #### [facility] [address] [place] [address] Dr. Bianca Hernandez Potassium [Moles/Vol] 5.7 mmol/L Critically high 3.5-5.1 [facility] Comment on above: Performed By: #### T 4, TSH, CMP, FT3, LIPID #### [facility] [address] [place] [address] Dr. Bianca Hernandez Protein [Mass/Vol] 7.4 g/dL Normal 6.4-8.2 [facility] Comment on above: Performed By: #### T 4, TSH, CMP, FT3, LIPID #### [facility] [address] [place] [address] Dr. Bianca Hernandez Sodium [Moles/Vol] 137 mmol/L Normal 136-145 [facility] Comment on above: Performed By: #### T 4, TSH, CMP, FT3, LIPID #### [facility] [address] [place] [address] Dr. Bianca Hernandez Urea nitrogen [Mass/Vol] 24.0 mg/dL Critically high 7.0-18.0 [facility] Comment on above: Performed By: #### T 4, TSH, CMP, FT3, LIPID #### [facility] [address] [address] [address] Bianca Hernandez Urea nitrogen/Creatinine [Mass ratio] 12.8 mg/mg Normal [facility] Comment on above: Performed By: #### T 4, TSH, CMP, FT3, LIPID #### [facility] [address] [address] [address] Bianca Hernandez T4on 08-12-2021 T4 [Mass/Vol] 14.70 ug/dL Critically high 4.80-13.90 [facility] Comment on above: Performed By: #### T 4, TSH, CMP, FT3, LIPID #### [facility] [address] [address] [address] Bianca Hernandez TSHon 08-12-2021 TSH 0.073 uIU/mL Critically low 0.358-3.740 [facility] Comment on above: Performed By: #### T 4, TSH, CMP, FT3, LIPID #### [facility] [address] [address] [address] Bianca Hernandez TSH RANGE SEE BELOW Normal [facility] Comment on above: Result Comment: <0.3 4 UIU/ml HYPERTHYROID 0.34-5.60 UIU/ml EUTHYROID >5.60 UIU/ml HYPOTHYROID Performed By: #### T 4, TSH, CMP, FT3, LIPID #### [facility] [address] [address] [address] Bianca Hernandez VITAMIN D 25 OHon 08-12-2021 VIT D 25-OH 62.1 ng/mL Normal [facility] Comment on above: Performed By: #### V ITAD ####[facility] [id number] [address] Bianca Hernandez VIT D RANGES SEE BELOW Normal [facility] Comment on above: Result Comment: <20 ng/mL Vit D deficient 20 - <30 ng/mL Vit D insufficient 30 - 100 ng/mL Vit D sufficient >100 ng/mL Potential Toxicity Performed By: #### V ITAD ####[facility] [id number] [address]Dr. Bianca Hernandez CBC with Diffon 03-21-2017 Abs. Basophil 0.00 k/uL Normal 0.0-0.2 [facility] Comment on above: Result Comment: Perf ormed at [address] [place] [address] Performed By: #### C DP, CP, LIPR, T4, TSH, FE, GLYHGB ####[address] , [place] [address] #### INSU ####[address] [phone] [place] [address] #### TU ####[address] [address] Abs.Neutrophil (Seg) 6.60 k/uL Normal 1.8-7.7 [facility] Comment on above: Performed By: #### C DP, CP, LIPR, T4, TSH, FE, GLYHGB ####[address] [place] [address] #### INSU ####[address] [phone] [place] [address] #### TU ####[address] [address] Basophils/100 WBC Auto (Bld) 1 % Normal 0-2 [facility] Comment on above: Performed By: #### C DP, CP, LIPR, T4, TSH, FE, GLYHGB ####[address] [place] [id number] #### INSU ####[address] [phone] [place] [address] #### TU ####[address] [address] Eosinophils 0.60 10*3/uL High 0.0-0.4 [facility] Comment on above: Performed By: #### C DP, CP, LIPR, T4, TSH, FE, GLYHGB ####[address] [place] [address] #### INSU ####[address] [phone] [place] [address] #### TU ####[address] [address] Eosinophils/100 leukocytes 6 % Normal 0-8 [facility] Comment on above: Performed By: #### C DP, CP, LIPR, T4, TSH, FE, GLYHGB ####[address] [place] [address] #### INSU ####[address] [phone] [place] [address] #### TU ####[address] [address] Erythrocyte distribution width Auto Ratio (RBC) 14.5 % Normal 12.1-15.2 [facility] Comment on above: Performed By: #### C DP, CP, LIPR, T4, TSH, FE, GLYHGB ####[address] [place] [address] #### INSU ####[address] [phone] [place] [address] #### TU ####[address] [address] Erythrocytes (RBC) 5.17 10*6/uL Normal 4.0-5.2 [facility] Comment on above: Performed By: #### C DP, CP, LIPR, T4, TSH, FE, GLYHGB ####[address] [place] [address] #### INSU ####[address] [phone] [place] [address] #### TU ####[address] [address] Hematocrit (HCT) 41.6 % Normal 36-46 [facility] Comment on above: Performed By: #### C DP, CP, LIPR, T4, TSH, FE, GLYHGB ####[address] [place] [address] #### INSU ####[address] [phone] [place] [address] #### TU ####[address] [address] Hemoglobin mass conc (Bld) 13.3 g/dL Normal 12.0-16.0 [facility] Comment on above: Performed By: #### C DP, CP, LIPR, T4, TSH, FE, GLYHGB ####[address] [place] [address] #### INSU ####[address] [phone] [place] [address] #### TU ####[address] [address] Lymphocytes 2.20 10*3/uL Normal 1.0-4.8 [facility] Comment on above: Performed By: #### C DP, CP, LIPR, T4, TSH, FE, GLYHGB ####[address] [place] [address] #### INSU ####[address] [phone] [place] [address] #### TU ####[address] [address] Lymphocytes/100 leukocytes 23 % Low 24-44 [facility] Comment on above: Performed By: #### C DP, CP, LIPR, T4, TSH, FE, GLYHGB ####[address] [place] [address] #### INSU ####[address] [phone] [place] [address] #### TU ####[address] [address] MCH 25.7 pg Low 26-34 [facility] Comment on above: Performed By: #### C DP, CP, LIPR, T4, TSH, FE, GLYHGB ####[address] [place] [address] #### INSU ####[address] [phone] [place] [address] #### TU ####[address] [address] MCHC mass conc (RBC) 32.0 g/dL Normal 31-37 [facility] Comment on above: Performed By: #### C DP, CP, LIPR, T4, TSH, FE, GLYHGB ####[address] [place] [address] #### INSU ####[address] [phone] [place] [address] #### TU ####[address] [address] MCV 80.5 fL Normal 80-100 [facility] Comment on above: Performed By: #### C DP, CP, LIPR, T4, TSH, FE, GLYHGB ####[address] [place] [address] #### INSU ####[address] [phone] [place] [address] #### TU ####[address] [address] Monocytes 0.30 10*3/uL Normal 0.0-1.0 [facility] Comment on above: Performed By: #### C DP, CP, LIPR, T4, TSH, FE, GLYHGB ####[address] [place] [address] #### INSU ####[address] [phone] [place] [address] #### TU ####[address] [address] Monocytes/100 leukocytes 3 % Normal 0-12 [facility] Comment on above: Performed By: #### C DP, CP, LIPR, T4, TSH, FE, GLYHGB ####[address] [place] [address] #### INSU ####[address] [phone] [place] [address] #### TU ####[address] [address] Neutrophil (Seg) 67 % High 36-66 [facility] Comment on above: Performed By: #### C DP, CP, LIPR, T4, TSH, FE, GLYHGB ####[address] [place] [address] #### INSU ####[address] [phone] [place] [address] #### TU ####[address] [address] Platelet mean volume (PMV) 9.4 fL Normal 6.0-12.0 [facility] Comment on above: Performed By: #### C DP, CP, LIPR, T4, TSH, FE, GLYHGB ####[address] [place] [address] #### INSU ####[address] [phone] [place] [address] #### TU ####[address] [address] Platelets 258 10*3/uL Normal 140-450 [facility] Comment on above: Performed By: #### C DP, CP, LIPR, T4, TSH, FE, GLYHGB ####[address] [place] [address] #### INSU ####[address] [phone] [place] [address] #### TU ####[address] [address] WBC (Leukocytes) 9.8 10*3/uL Normal 3.5-11.0 [facility] Comment on above: Performed By: #### C DP, CP, LIPR, T4, TSH, FE, GLYHGB ####[address] [place] [address] #### INSU ####[address] [phone] [place] [address] #### TU ####[address] [address] Auto Diff Performed NOT REPORTED Normal [facility] [place] [facility] Comment on above: Performed By: #### C DP, CP, LIPR, T4, TSH, FE, GLYHGB ####[address] [place] [address] #### INSU ####[address] [phone] [place] [address] #### TU ####[address] [address] Erythrocyte morphology NOT REPORTED Normal [facility] Comment on above: Performed By: #### C DP, CP, LIPR, T4, TSH, FE, GLYHGB ####[address] [place] [address] #### INSU ####[address] [phone] [place] [address] #### TU ####[address] [address] Granulocytes/100 WBC (Bld) NOT REPORTED Normal 0.00-0.30 [facility] Comment on above: Performed By: #### C DP, CP, LIPR, T4, TSH, FE, GLYHGB ####[address] [place] [address] #### INSU ####[address] [phone] [place] [address] #### TU ####[address] [address] Immature granulocytes #/vol (Bld) NOT REPORTED Normal 0 [facility] Comment on above: Performed By: #### C DP, CP, LIPR, T4, TSH, FE, GLYHGB ####[address] [place] [address] #### INSU ####[address] [phone] [place] [address] #### TU ####[address] [address] Platelets NOT REPORTED Normal [facility] Comment on above: Performed By: #### C DP, CP, LIPR, T4, TSH, FE, GLYHGB ####[address] [place] [address] #### INSU ####[address] [phone] [place] [address] #### TU ####[address] [address] WBC Morphology NOT REPORTED Normal [facility] Comment on above: Performed By: #### C DP, CP, LIPR, T4, TSH, FE, GLYHGB ####[address] [place] [address] #### INSU ####[address] [phone] [place] [address] #### TU ####[address] [address] Comp Metabolic Profon 2016 (cont.) Normal [facility] Comment on above: Result Comment: Aver age GFR for 60-69 years old: 85 mL/min/1.73sq mChronic Kidney Disease: <60 mL/min/1.73sq mKidney failure: <15 mL/min/1.73sq meGFR calculated using average adult body mass. Additional eGFR calculator available at:http://www.[employer].com/multiple_crcl_2012.htm Performed By: #### C DP, CP, LIPR, T4, TSH, FE, GLYHGB ####[address] [place] [address] #### INSU ####[address] [phone] [place] [address] #### TU ####[address] [address] Alanine aminotransferase (ALT) 19 U/L Normal 5-33 [facility] Comment on above: Performed By: #### C DP, CP, LIPR, T4, TSH, FE, GLYHGB ####[address] [place] [address] #### INSU ####[address] [phone] [place] [address] #### TU ####[address] [address] Albumin 4.2 g/dL Normal 3.5-5.2 [facility] Comment on above: Performed By: #### C DP, CP, LIPR, T4, TSH, FE, GLYHGB ####[address] [place] [address] #### INSU ####[address] [phone] [place] [address] #### TU ####[address] [address] Albumin/Globulin Ratio 1.4 {ratio} Normal 1.0-2.5 [facility] Comment on above: Performed By: #### C DP, CP, LIPR, T4, TSH, FE, GLYHGB ####[address] [place] [address] #### INSU ####[address] [phone] [place] [address] #### TU ####[address] [address] Alkaline Phos 50 U/L Normal 35-104 [facility] Comment on above: Performed By: #### C DP, CP, LIPR, T4, TSH, FE, GLYHGB ####[address] [place] [address] #### INSU ####[address] [phone] [place] [address] #### TU ####[address] [address] Anion gap 13 mmol/L Normal 9-17 [facility] Comment on above: Performed By: #### C DP, CP, LIPR, T4, TSH, FE, GLYHGB ####[address] [place] [address] #### INSU ####[address] [phone] [place] [address] #### TU ####[address] [address] Aspartate aminotransferase (AST) 21 U/L Normal <32 [facility] Comment on above: Performed By: #### C DP, CP, LIPR, T4, TSH, FE, GLYHGB ####[address] [place] [address] #### INSU ####[address] [place] [phone] [place] [address] #### TU ####[address] [address] Bilirubin Ql (U) 0.51 mg/dL Normal 0.3-1.2 [facility] Comment on above: Performed By: #### C DP, CP, LIPR, T4, TSH, FE, GLYHGB ####[address] [place] [address] #### INSU ####[address] [phone] [place] [address] #### TU ####[address] [address] BUN/CRE Ratio 22 High 9-20 [facility] Comment on above: Performed By: #### C DP, CP, LIPR, T4, TSH, FE, GLYHGB ####[address] [place] [address] #### INSU ####[address] [phone] [place] [address] #### TU ####[address] [address] Calcium 9.8 mg/dL Normal 8.6-10.4 [facility] Comment on above: Performed By: #### C DP, CP, LIPR, T4, TSH, FE, GLYHGB ####[address] [place] [address] #### INSU ####[address] [phone] [place] [address] #### TU ####[address] [address] Chloride 100 mmol/L Normal 98-107 [facility] Comment on above: Performed By: #### C DP, CP, LIPR, T4, TSH, FE, GLYHGB ####[address] [place] [address] #### INSU ####[address] [phone] [place] [address] #### TU ####[address] [address] CO2 27 mmol/L Normal 20-31 [facility] Comment on above: Performed By: #### C DP, CP, LIPR, T4, TSH, FE, GLYHGB ####[address] [place] [address] #### INSU ####[address] [phone] [place] [address] #### TU ####[address] [address] Creatinine 0.72 mg/dL Normal 0.50-0.90 [facility] Comment on above: Performed By: #### C DP, CP, LIPR, T4, TSH, FE, GLYHGB ####[address] [place] [address] #### INSU ####[address] [phone] [place] [address] #### TU ####[address] [address] eGFR (non-black) mL/min/{1.73_m2} Normal >60 [facility] Comment on above: Performed By: #### C DP, CP, LIPR, T4, TSH, FE, GLYHGB ####[address] [place] [address] #### INSU ####[address] [phone] [place] [address] #### TU ####[address] [address] Glucose mass conc 148 mg/dL High 70-99 [facility] Comment on above: Performed By: #### C DP, CP, LIPR, T4, TSH, FE, GLYHGB ####[address] [place] [address] #### INSU ####[address] [phone] [place] [address] #### TU ####[address] [address] Potassium molar conc 5.0 mmol/L Normal 3.7-5.3 [facility] Comment on above: Performed By: #### C DP, CP, LIPR, T4, TSH, FE, GLYHGB ####[address] [place] [address] #### INSU ####[address] [phone] [place] [address] #### TU ####[address] [address] Protein 7.3 g/dL Normal 6.4-8.3 [facility] Comment on above: Performed By: #### C DP, CP, LIPR, T4, TSH, FE, GLYHGB ####[address] [place] [address] #### INSU ####[address] [phone] [place] [address] #### TU ####[address] [address] Sodium 140 mmol/L Normal 135-144 [facility] Comment on above: Performed By: #### C DP, CP, LIPR, T4, TSH, FE, GLYHGB ####[address] [place] [address] #### INSU ####[address] [phone] [place] [address] #### TU ####[address] [address] Staging: Normal [facility] Comment on above: Result Comment: Stag e 1: Some kidney damage normal GFRStage 2: Mild kidney damage GFR 60-89Stage 3: Moderate kidney damage GFR 30-59Stage 4: Severe kidney damage GFR 15-29Stage 5: Severe kidney damage GFR <15ESRD - chronic treatment by dialysis or transplantPerformed at [address] [place] [address] Performed By: #### C DP, CP, LIPR, T4, TSH, FE, GLYHGB ####[address] [place] [address] #### INSU ####[address] [phone] [place] [address] #### TU ####[address] [address] Urea nitrogen 16 mg/dL Normal 8- [facility] Comment on above: Performed By: #### C DP, CP, LIPR, T4, TSH, FE, GLYHGB ####[address] [place] [address] #### INSU ####[address] [phone] [place] [address] #### TU ####[address] [address] Hemoglobin A1Con 03-21-2017 Glucose mass conc 134 mg/dL Normal [facility] Comment on above: Result Comment: The ADA and AACC recommend providing the estimated average glucose result to permit better patient understanding of their HBA1c result.Performed at [address] [place] [address] Performed By: #### C DP, CP, LIPR, T4, TSH, FE, GLYHGB ####[address] [place] [address] #### INSU ####[address] [phone] [place] [address] #### TU ####[address] [address] Hemoglobin A1c/Hemoglobin.total mass fraction (Bld) 6.3 % High 4.8-5.9 [facility] Comment on above: Performed By: #### C DP, CP, LIPR, T4, TSH, FE, GLYHGB ####[address] [place] [address] #### INSU ####[address] [phone] [place] [address] #### TU ####[address] [address] Insulinon 03-21-2017 Insulin 22.0 mU/L Normal [facility] Comment on above: Performed By: #### C DP, CP, LIPR, T4, TSH, FE, GLYHGB ####[address] [place] [address] #### INSU ####[address] [phone] [place] [address] #### TU ####[address] [address] Reference Range [facility] Comment on above: Result Comment: Fast in.6-24.930 min: 20-69212 min: 29-8890 min: 26-65588 min: 22-79Performed at [address] [address] Performed By: #### C DP, CP, LIPR, T4, TSH, FE, GLYHGB ####[address] [place] [address] #### INSU ####[address] [phone] [place] [address] #### TU ####[address] [address] Collection Info. 1153 Normal [facility] Comment on above: Result Comment: Perf ormed at [address] [place] [address] Performed By: #### C DP, CP, LIPR, T4, TSH, FE, GLYHGB ####[address] [place] [address] #### INSU ####[address] [phone] [place] [address] #### TU ####[address] [address] Ironon 03-21-2017 Iron 54 ug/dL Normal 37-145 [facility] Comment on above: Result Comment: Perf ormed at [address] [place] [address] Performed By: #### C DP, CP, LIPR, T4, TSH, FE, GLYHGB ####[address] [place] [address] #### INSU ####[address] [phone] [place] [address] #### TU ####[address] [address] Lipid Profileon 03-21-2017 Cholesterol 207 mg/dL High <200 [facility] Comment on above: Result Comment: Chol esterol Guidelines: <200 Desirable 200-240 Borderline >240 Undesirable Performed By: #### C DP, CP, LIPR, T4, TSH, FE, GLYHGB ####[address] [place] [address] #### INSU ####[address] [phone] [place] [address] #### TU ####[address] [address] Cholesterol to HDL Ratio 4.5 {ratio} Normal <5 [facility] Comment on above: Performed By: #### C DP, CP, LIPR, T4, TSH, FE, GLYHGB ####[address] [place] [address] #### INSU ####[address] [phone] [place] [address] #### TU ####[address] [address] HDL Cholesterol 46 mg/dL Normal >40 [facility] Comment on above: Result Comment: HDL Guidelines: <40 Undesirable 40-59 Borderline >59 Desirable Performed By: #### C DP, CP, LIPR, T4, TSH, FE, GLYHGB ####[address] [place] [address] #### INSU ####[address] [phone] [place] [address] #### TU ####[address] [address] LDL Cholesterol 132 mg/dL High 0-130 [facility] Comment on above: Result Comment: LDL Guidelines: <100 Desirable 100-129 Near to/above Desirable 130-159 Borderline >159 UndesirableDirect (measured) LDL and calculated LDL are not interchangeable tests. Performed By: #### C DP, CP, LIPR, T4, TSH, FE, GLYHGB ####[address] [place] [address] #### INSU ####[address] [place] [phone] [place] [address] #### TU ####[address] [address] Triglyceride 146 mg/dL Normal <150 [facility] Comment on above: Result Comment: Trig lyceride Guidelines: <150 Desirable 150- 199 Borderline 200-499 High >499 Very high Based on AHA Guidelines for fasting triglyceride, December 2011.Performed at [address] [place] [address] Performed By: #### C DP, CP, LIPR, T4, TSH, FE, GLYHGB ####[address] [place] [address] #### INSU ####[address] [phone] [place] [address] #### TU ####[address] [address] Cholesterol in VLDL mass conc NOT REPORTED Normal 04-25 [facility] Comment on above: Performed By: #### C DP, CP, LIPR, T4, TSH, FE, GLYHGB ####[address] [place] [address] #### INSU ####[address] [phone] [place] [address] #### TU ####[address] [address] Thyroid Stim. Horm.on 2016 Thyroid stimulating hormone (TSH) 0.04 m[IU]/L Low 0.30-5.00 [facility] Comment on above: Result Comment: Perf ormed at [address] [place] [address] Performed By: #### C DP, CP, LIPR, T4, TSH, FE, GLYHGB ####[address] [place] [address] #### INSU ####[address] [phone] [place] [address] #### TU ####[address] [address] Thyroxine T4on 03-21-2017 Thyroxine (T4) 11.9 ug/dL Normal 4.5-12.0 [facility] Comment on above: Result Comment: Perf ormed at [address] [place] [address] Performed By: #### C DP, CP, LIPR, T4, TSH, FE, GLYHGB ####[address] [place] [address] #### INSU ####[address] [phone] [place] [address] #### TU ####[address] [address] Thyroxine Uptakeon 7 Thyroxine (T4) 35.28 % Normal 28-41 [facility] Comment on above: Result Comment: Perf ormed at [address] [address] Performed By: #### C DP, CP, LIPR, T4, TSH, FE, GLYHGB ####[address] [place] [address] #### INSU ####[address] [place] [phone] [place] [address] #### TU ####[address] [place] [address] Encounters Encounter Date Encounter Type Care Provider Facility Start: 10-18-2021 End: 10-19-[address] FERMIN LANGE Facility:[facility] Start: 10-12-2021 End: 10-13-[address] FERMIN LANGE Facility:[facility] Start: 08-18-2021 Encounter for genera l adult medical examination without abnormal findings DR FERMIN LANGE [facility] Start: 08-17-2021 End: 08-18-[address] FERMIN LANGE Facility:[facility] Start: 08-12-2021 End: 08-13-[address] FERMIN LANGE Facility:[facility] Start: 08-12-2021 End: 08-13-2021 Encounter for general adult medical examination without abnormal findings DR FERMIN LANGE Facility:[facility] Start: 11-29-[address] FERMIN LANGE Facility :[facility] Start: 03-21-2017 End: 03-22-2017 Ambulatory FERMIN [facility] l Procedures Date Procedure Procedure Detail Performing [...] Payer Category Payer Private Health Insurance [id number] 1957 Self-pay [id number] 1957 Unknown [id number] 1955 Unknown [id number] 2.16.84 [id number] 1955 Unknown [id number] 2.16.84 [id number] 1957 Unknown [id number] 2.16.84 [id number] 1957 Unknown [id number] 2.16.84 [id number] 1957 Unknown [id number] 2.16.84 [id number] Summary Purpose Family History No Family History Records FoundNo Family History Records Found Advance Directives No Advanced Directives Records FoundNo Advanced Directives Records Found Additional Source Comments INFORMATION SOURCE (unrecogn ized section and content) DATE CREATED AUTHOR 09/19/2017 [facility] DATE CREATED AUTHOR AUTHOR'S YOLANDA CORTEZ 10/19/2021 [facility] FOR RECORDS PERTAINING TO PATIENTS WHO ARE [...] BE BASED ON THE PRIMARY CLINICAL RECORDS. [facility] [employer] [facility]. provides no warranty or guarantee of the accuracy or completeness of information in this document.
--- NOTE | 2024-12-06 07:47 | MM_ITS ---
Patient Name: BONNIE DENT MR#: [id number] : 1955 Exam Date: 12/06/2024 Ordering Doctor: DR FERMIN LANGE . RADIOLOGY REPORT PROCEDURE: MM TOMOSYNTHESIS SCREENING BI COMPARISON: None. INDICATIONS: Screening Calculator Name NCI Breast Cancer Risk Assessment Tool 5 Year Breast Cancer Risk 1.90% Lifetime Breast Cancer Risk 6.40% Personal Breast Cancer No Personal Ovarian Cancer No Treatments None Family Cancers Grandmother-maternal with uterine cancer at age ~55. LOCATION: [facility] BREAST COMPOSITION: There are scattered areas of fibroglandular density. FINDINGS: RIGHT BREAST: No significant suspicious finding. LEFT BREAST: No significant suspicious finding. DIAGNOSTIC CATEGORY 1--NEGATIVE. RECOMMENDATIONS: ROUTINE MAMMOGRAM AND CLINICAL EVALUATION IN 12 MONTHS. Dictated by: Ignacio Alexander MD on 12/10/2024 at 12:07 Approved by: Ignacio Alexander MD on 12/10/2024 at 12:10
== END 2024-12-06 07:38 | disposition home or self-care (01) ==
LOC: MAMMO 07:38
PROVIDERS: PCP Family Medicine; Visit Provider Family Medicine
DX: Z12.31 Encounter for screening mammogram for malignant neoplasm of breast (principal)
CPT/HCPCS: 77063; 77067